=== PATIENT | male | born 1950 | race Caucasian/White ===

== ENCOUNTER 2021-12-07 16:42 | Emergency (ER) | payer MEDICARE ==
[2021-12-07] MEDS ORDERED: Ketorolac 10 MG Tab ONE ×2 (19:05)
[2021-12-07] MEDS ORDERED: Methocarbamol 500 MG Tab ONE ×2 (19:05)
== END 2021-12-07 20:15 | disposition home or self-care (01) ==
LOC: JP.ED 16:42
DX: M62.838 Other muscle spasm (principal); X50.3XXA Overexertion from repetitive movements, initial encounter
CPT/HCPCS: 99283; A9270

== ENCOUNTER 2021-12-14 08:33 | Emergency (ER) | payer MEDICARE, OTHER ==
[2021-12-14] MEDS ORDERED: Triamcinolone Acetonide 40 MG/ML 1 ML SDV INJECT PRN (10:08)
[2021-12-14] MEDS ORDERED: Bupivacaine 0.5% 10 ML SDV INJECT ONE (10:30)
== END 2021-12-14 11:05 | disposition home or self-care (01) ==
LOC: JP.ED 08:33
DX: M25.512 Pain in left shoulder (principal)
CPT/HCPCS: 20552; 73030; 99283; J3301; J3490